=== PATIENT | male | born 1950 | race Caucasian/White ===

== ENCOUNTER 2017-01-11 12:09 | Emergency (ER) | payer SELFPAY ==
[2017-01-11 12:16] VITALS: RESP 16
--- NOTE | 2017-01-11 14:53 | EDPHY ---
H & P Smoking Status: Never smoked Time Seen by Provider: 01/11/17 13:29 HPI/ROS: CHIEF COMPLAINT: Right middle finger injury HISTORY OF PRESENT ILLNESS: The 66-year-old male presents to the emergency department with injury to the right middle finger. The patient was mountain biking and fell and dislocated his right middle finger. The incident happened yesterday afternoon. He did not hit his head or lose consciousness. Denies any other trauma or injury. Right-hand dominant. ROS: Denies numbness or tingling in his fingers, retained foreign body or laceration. (Essie Reaves) Past Medical/Surgical History: HTN (Essie Reaves) Social History: and visiting from [facility] (Essie Reaves) Physical Exam: On examination the patient has deformity noted to the right 3rd finger at the PIP joint. There is ecchymosis noted. No puncture wound. Nontender to palpate the other fingers. He has limited flexion of the PIP joint. No obvious rotational deformities noted. Strong radial pulse at the right wrist. ( Essie Reaves) Constitutional: Initial Vital Signs Temperature (C) 37 C 01/11/17 12:13 Heart Rate 84 01/11/17 12:13 Respiratory Rate 16 01/11/17 12:13 Blood Pressure 170/89 H 01/11/17 12:13 O2 Sat (%) 95 01/11/17 12:13 O2 Delivery Mode Room Air Allergies/Adverse Reactions: No Known Allergies Allergy (Unverified 01/11/17 12:17) Home Medications: Medication Instructions Recorded Eddy Inhibitor 01/11/17 Beta Román 01/11/17 Statin 01/11/17 MDM/Departure - [facility] Imaging: I viewed and interpreted images myself - [facility] Procedures: After consent was obtained from the patient gentle traction and countertraction was applied to the right 3rd finger at the PIP joint and his finger was easily relocated. This was performed by myself. He tolerated this quite well. Patient was placed in Alumafoam splint and examined post application in good placement with normal RN PERITONE[employer] DIALYSIS. (Essie Reaves) Medications Given: The patient was evaluated and managed by the Physician Tail Edger. My co- signature indicates that I have reviewed this chart and I agree with the findings and plan of care as documented. I am the secondary supervising physician. (Cynthia Garcia) ED Course/Re-evaluation: 66-year-old male presents with right middle finger injury. Clinically this patient had a dislocation at the PIP joint. This was easily reduced with gentle traction and counter traction. He tolerated this quite well. Post reduction x-rays reveal no fractures. He was placed in Alum[place]oam splint, fingers danny-taped, and given orthopedic referral. (Essie Reaves) - Depart Disposition: Home, Routine, Self-Care Clinical Impression: Dislocation right 3rd finger Condition: Good Instructions: Finger Dislocation (ED) Additional Instructions: Splint for comfort an support. Ibuprofen 600every 8 hours for pain as directed. Ice, elevate to help reduce swelling. When you call to arrange for a follow-up appointment with the orthopedic surgeon , tell them that you had a dislocation of your right 3rd PIP joint. Referrals: Ramin Elizondo MD [Medical Doctor] - 2-3 days, call for appt. (Orthopedic surgeon on-call)
[2017-01-11 15:12] VITALS: BP 158/89; PULSE 76; TEMP 97.9; O2SAT 96
== END 2017-01-11 15:12 | disposition home or self-care (01) ==
PROC: 0RSWXZZ Reposition Right Finger Phalangeal Joint, External Approach (ICD-10-PCS; principal; 2017-01-11)
DX: S63.282A Dislocation of proximal interphalangeal joint of right middle finger, initial encounter (principal); I10 Essential (primary) hypertension; V18.0XXA Pedal cycle driver injured in noncollision transport accident in nontraffic accident, initial encounter; Y92.410 Unspecified street and highway as the place of occurrence of the external cause; Y99.8 Other external cause status; Y93.55 Activity, bike riding
CPT/HCPCS: L3925